=== PATIENT | male | born 1970 | race American Indian/Alaskan Native ===

== ENCOUNTER 2022-10-20 13:07 | Day surgery (SDC) | payer OTHER ==
[~2022-10-20] VITALS: Ht 177.8 cm; Wt 90.4 kg
[~2022-10-20 13:07] MED LIST: LIDO5TP TOP
[2022-10-20 15:53] VITALS: BP 118/83
== END 2022-10-20 15:50 | disposition home or self-care (01) ==
LOC: ORSCSDS 13:07
PROVIDERS: Student in an Organized Health Care Education/Training Program
PROC: 0DBN8ZX Excision of Sigmoid Colon, Via Natural or Artificial Opening Endoscopic, Diagnostic (ICD-10-PCS; principal; 2022-10-20 14:30)
PROC: 0DBE8ZX Excision of Large Intestine, Via Natural or Artificial Opening Endoscopic, Diagnostic (ICD-10-PCS; principal; 2022-10-20 14:30)
PROC: 0DBM8ZX Excision of Descending Colon, Via Natural or Artificial Opening Endoscopic, Diagnostic (ICD-10-PCS; principal; 2022-10-20 14:30)
DX: Z12.11 Encounter for screening for malignant neoplasm of colon (principal); K52.9 Noninfective gastroenteritis and colitis, unspecified; D12.5 Benign neoplasm of sigmoid colon; K63.5 Polyp of colon
CPT/HCPCS: 88305; J0461; J2001; J2405; J2704; J7120; Q9968

== ENCOUNTER 2024-04-17 11:26 | Day surgery (SDC) | payer OTHER ==
[~2024-04-17] VITALS: Ht 177.8 cm; Wt 94.3 kg
[2024-04-17] VITALS (8 sets, daily range): BP systolic 98–147; BP diastolic 55–91
[~2024-04-17 11:26] MED LIST changes: +ACET325 PO; +CeFAZolin Sodium 2,000 MG in NS 100 ML IV SCH; +Lactated Ringer's 1,000 ML IV SCH
[2024-04-17] MEDS ORDERED: propofoL 20 ML IV ONE (12:09)
[2024-04-17] MEDS ORDERED: Ondansetron HCl 2 MG / ML 2ML Vial ONE (12:09)
[2024-04-17] MEDS ORDERED: Rocuronium Bromide 10 MG/ML 5ML Injection IV ONE ×2 (12:09→14:51)
[2024-04-17] MEDS ORDERED: Dexamethasone Sod Phos 10 MG/ML 1ML VIAL ONE (12:09)
[2024-04-17] MEDS ORDERED: Midazolam HCl 1MG / ML 2ML Vial ONE (12:09)
[2024-04-17] MEDS ORDERED: FentaNYL Citrate 50 MCG/ML 2 ML Injection ONE ×2 (12:09→15:42)
--- NOTE | 2024-04-17 12:16 | NUR ---
History, Chart, Medications and Allergies reviewed before start of procedure. Pre-Op teaching done. Pt verbalizes understanding. Patient confirms NPO status and agrees with scheduled surgery. AT BS. BELONGINGS BAG GIVEN TO .
[2024-04-17] MEDS ORDERED: Bupivacaine 0.5% HCl 5 MG/ML 30MLVIAL ONE (12:42)
[2024-04-17] MEDS ORDERED: propofoL 100 ML IV ONE (14:09)
[2024-04-17] MEDS ORDERED: Acetaminophen 500 MG Tab ONE (14:17)
[2024-04-17] MEDS ORDERED: Lidocaine HCl 4% 5 ML SDA ONE (14:22)
[2024-04-17] MEDS ORDERED: HYDROmorphone HCl/Pf 1MG SYR ONE (14:24)
[2024-04-17] MEDS ORDERED: Phenylephrine HCl 100 MCG/ML-NS 10MLSYR (1MG/10ML) ONE (15:03)
[2024-04-17] MEDS ORDERED: Ketorolac Tromethamine 30mg Vial ONE (15:03)
[2024-04-17] MEDS ORDERED: Sugammadex Sodium 200 MG/2ML SDV (100 MG/ML) ONE (15:04)
--- NOTE | 2024-04-17 15:07 | NUR ---
04/17/24 1507 Radha Banerjee REDDENED RASH NOTED ON PATIENT'S LOWER ABDOMEN WHERE PATIENT WAS SHAVED PRIOR TO SURGICAL PREP.
[2024-04-17] MEDS ORDERED: OxyCODONE 5 mg/Acetamin 325 mg TABLET PO PRN (16:40)
--- NOTE | 2024-04-17 17:30 | NUR ---
Patient up to Ambulate independently. Gait steady. Dressing to procedure site clean, dry, intact with no visible drainage, swelling, erythema or bruising noted. Discharge instructions reviewed with patient. Patient verbalizes understanding. Copy given to patient to take home. Discharged via wheelchair to private car for ride home. ALL BELONGINGS RETURNED TO PATIENT.
== END 2024-04-17 22:48 | disposition home or self-care (01) ==
LOC: ORSCMMR 11:26 → ORD 13:15 → ORSCMMR 22:48
PROVIDERS: Surgery
PROC: 8E0W4CZ Robotic Assisted Procedure of Trunk Region, Percutaneous Endoscopic Approach (ICD-10-PCS; principal; 2024-04-17 13:15)
PROC: 0WUF4JZ Supplement Abdominal Wall with Synthetic Substitute, Percutaneous Endoscopic Approach (ICD-10-PCS; principal; 2024-04-17 13:15)
DX: K42.0 Umbilical hernia with obstruction, without gangrene (principal); K43.6 Other and unspecified ventral hernia with obstruction, without gangrene; Z87.891 Personal history of nicotine dependence
CPT/HCPCS: A9270; C1781; J0690; J1100; J1171; J1885; J2003; J2250; J2371; J2405; J2704; J3010; J7120